=== PATIENT | female | born 1950 | race Two or more races ===

== ENCOUNTER 2022-09-10 08:19 | Emergency (ER) | payer OTHER ==
[~2022-09-10] VITALS: Ht 152.4 cm; Wt 70.0 kg
[2022-09-10] MEDS ORDERED: LIDOCAINE 1% HCL (LOCAL ANESTH.) INJ 20ML MDV IJ ONE (09:00)
[2022-09-10] MEDS ORDERED: TETANUS-DIPTH-ACEL PERTUSSIS 0.5ML SYR Tdap IM ONE (09:15)
[2022-09-10] MEDS ORDERED: ACETAMINOPHEN 325 MG TAB PO ONE (09:15)
[2022-09-10] MEDS ORDERED: cefTRIAXone SOD 1,000 MG VL IM ONE (09:30)
[2022-09-10] MEDS ORDERED: IBUP800T27 PO (09:50)
[2022-09-10] MEDS ORDERED: CEPH-510 PO (09:50)
[2022-09-10 10:01] VITALS: BP 180/89
== END 2022-09-10 10:13 | disposition home or self-care (01) ==
LOC: ER 08:19
DX: S62.632A Displaced fracture of distal phalanx of right middle finger, initial encounter for closed fracture (principal); S61.312A Laceration without foreign body of right middle finger with damage to nail, initial encounter; X58.XXXA Exposure to other specified factors, initial encounter; Y93.H9 Activity, other involving exterior property and land maintenance, building and construction; Y92.89 Other specified places as the place of occurrence of the external cause; Y99.8 Other external cause status
CPT/HCPCS: 12002; 73140; 90471; 90715; 96372; 99284; J0696; J2001

== ENCOUNTER 2022-10-15 09:43 | Emergency (ER) | payer OTHER ==
[~2022-10-15] VITALS: Ht 160 cm; Wt 78.0 kg
[~2022-10-15 09:43] MED LIST: CEPH-510 PO; IBUP800T27 PO
[2022-10-15 11:05] LABS: Albumin 3.5 g/dL (3.4-5.0); Calcium 9.4 mg/dL (8.5-10.1); Magnesium 2.4 mg/dL (1.6-2.6); Potassium 3.3 mmol/L (3.5-5.1)
[2022-10-15 11:08] LABS: Basophils # (auto) 0 10 ^3/uL (0-0.2); Basophils % (auto) 0.4 % (0.0-2.0); Eosinophils # (auto) 0.1 10 ^3/uL (0-0.8); Hematocrit 41.3 % (36.0-46.0); Hemoglobin 13.9 g/dL (12.2-16.2); Lymphocytes # (auto) 1.5 10 ^3/uL (0.4-5.4); Lymphocytes % (auto) 21.6 % (10.0-50.0); Mean Corpuscular Hemoglobin 32.9 pg (28.0-32.0); Mean Corpuscular Hgb Conc. 33.6 g/dL (32.0-36.0); Mean Corpuscular Volume 97.7 fL (80.0-100.0); Monocytes # (auto) 0.6 10 ^3/uL (0-1.3); Monocytes % (auto) 8.7 % (0.0-12.0); Neutrophils # (auto) 4.9 10 ^3/uL (1.6-8.6); Neutrophils % (auto) 68.3 % (37.0-80.0); Nucleated Red Blood Cells % 0.1 %; Red Blood Cells 4.23 10^6/uL (4.0-5.20); Red Cell Distribution Width 13.9 % (11.8-14.3); White Blood Cell 7.2 10^3/uL (4.4-10.8)
[2022-10-15 11:10] LABS: BUN/Creatinine Ratio 11.3; Total Protein 6.9 g/dL (6.4-8.2)
[2022-10-15 11:22] LABS: INR 0.97 (0.9-1.15); Partial Thromboplastin Time 23.4 sec (24.6-33.4)
[2022-10-15 13:08] VITALS: BP 164/90
[2022-10-15 13:42] LABS: Urine Specific Gravity 1.021 (1.001-1.035)
[2022-10-15 13:43] LABS: Urine Blood Trace /uL (Negative)
== END 2022-10-15 13:13 | disposition home or self-care (01) ==
LOC: ER 09:43
DX: M71.22 Synovial cyst of popliteal space [Baker], left knee (principal); M71.21 Synovial cyst of popliteal space [Baker], right knee; M79.89 Other specified soft tissue disorders; E11.9 Type 2 diabetes mellitus without complications; I10 Essential (primary) hypertension; Z90.49 Acquired absence of other specified parts of digestive tract; Z90.710 Acquired absence of both cervix and uterus
CPT/HCPCS: 36415; 71046; 80053; 81003; 83735; 85025; 85610; 85730; 93005; 93970